=== PATIENT | female | born 1975 | race Caucasian/White ===

== ENCOUNTER 2020-06-20 11:26 | Emergency (ER) | payer OTHER ==
[2020-06-20 12:31] LABS: BASOPHIL 0.5 % (0-2); EOSINOPHIL 0.3 % (0-5); LYMPHOCYTE 10.2 % (15-48); MCH 26.2 pg (25.0-31.0); MCHC 31.7 g/dL (32.0-36.0); MCV 82.7 fL (78.0-100.0); MONOCYTE 3.4 % (0-12); MPV 9.4 fL (6.0-9.5); NRBC 0; PLT 312 K/uL (150-400); RBC 4.96 M/uL (4.20-5.40); WBC 9.6 K/uL (4.0-10.5)
[2020-06-20 12:33] LABS: ALBUMIN 3.5 g/dL (3.4-5.0); BILIRUBIN - TOTAL 0.3 mg/dL (0.2-1.0); BUN/CREAT RATIO (CALC) 18.8 RATIO; C-REACTIVE PROTEIN 2.5 mg/dL (<=0.90); CREATININE 0.64 mg/dL (0.51-0.95); POTASSIUM 4.4 mmol/L (3.5-5.1); TOTAL PROTEIN 7.5 g/dL (6.4-8.2)
[2020-06-20 13:09] LABS: BILIRUBIN NEGATIVE (NEGATIVE); BLOOD NEGATIVE Ery/uL (NEGATIVE); CLARITY CLEAR (CLEAR); COLOR YELLOW (YELLOW); GLUCOSE (U) NORMAL (NORMAL); LEUKOCYTES NEGATIVE Leu/uL (NEGATIVE); NITRITE NEGATIVE (NEGATIVE); PROTEIN NEGATIVE (NEGATIVE); SPECIFIC GRAVITY 1.025 (1.001-1.030); UROBILINOGEN 0.2 mg/dL (0.2-1.0)
[2020-06-20 13:13] LABS: ECSTASY (MDMA) NEGATIVE (NEGATIVE); MARIJUANA (THC) NEGATIVE (NEGATIVE); METHADONE NEGATIVE (NEGATIVE)
[2020-06-20 13:14] LABS: AMPHETAMINES NEGATIVE (NEGATIVE); BARBITURATES NEGATIVE (NEGATIVE); OPIATES NEGATIVE (NEGATIVE); OXYCODONE NEGATIVE (NEGATIVE)
[2020-06-20] MEDS ORDERED: ANTIVERT25 MG PO (17:21)
== END 2020-06-20 17:34 | disposition home or self-care (01) ==
LOC: FER 11:26
PROVIDERS: Internal Medicine
DX: H81.10 Benign paroxysmal vertigo, unspecified ear (principal); E86.0 Dehydration; E11.9 Type 2 diabetes mellitus without complications; I10 Essential (primary) hypertension; Z20.822 Contact with and (suspected) exposure to COVID-19; F17.200 Nicotine dependence, unspecified, uncomplicated; Z79.899 Other long term (current) drug therapy; Z79.84 Long term (current) use of oral hypoglycemic drugs
CPT/HCPCS: 36415; 80053; 80305; 81003; 83605; 83690; 84145; 85025; 86140; J7030; U0002